=== PATIENT | female | born 1990 | race Caucasian/White ===

== ENCOUNTER 2021-09-01 15:35 | Emergency (ER) | payer SELFPAY ==
[~2021-09-01] VITALS: Ht 165.1 cm; Wt 62.3 kg
[2021-09-01 15:54] VITALS: BP 111/68
--- NOTE | 2021-09-01 16:00 | NUR ---
PT AMBULATED TO BED 8
--- NOTE | 2021-09-01 16:17 | NUR ---
31 Y/O FEMALE BIB SELF C/O INTERMITTENT EPIGASTRIC PAIN X 1 YEAR. LAST BM NORMAL TODAY. DENIES N/V/D/ CONSTIPATION. PT STATES THE PAIN WORSENS AFTER SHE EATS. PT DENIES CHEST PAIN, SOB, FEVER OR CHILLS. BED IN LOWEST POSITION, BED RAIL X1. PMH: DENIES NKA MEDS:DENIES
[2021-09-01 16:37] LABS: BASOPHILS # (AUTO) 0.1 K/uL (0.00-0.22); BASOPHILS % (AUTO) 0.7 % (0.0-2.0); EOSINOPHILS # (AUTO) 0.1 K/uL (0-0.4); EOSINOPHILS % (AUTO) 0.8 % (0.0-4.0); HEMATOCRIT 36.5 % (36-48); HEMOGLOBIN 11.9 g/dL (12.0-16.0); LYMPHOCYTES # (AUTO) 1.5 K/uL (2.5-16.5); LYMPHOCYTES % (AUTO) 16.2 % (20.5-51.1); MEAN CORPUSCULAR HEMOGLOBIN 29 pg (27-31); MEAN CORPUSCULAR HGB CONC 33 g/dL (33-37); MEAN CORPUSCULAR VOLUME 88.3 fL (80-94); MONOCYTES # (AUTO) 0.6 K/uL (0.8-1.0); MONOCYTES % (AUTO) 6.1 % (1.7-9.3); NEUTROPHILS % (AUTO) 76.2 % (42.2-75.2); PLATELET COUNT (AUTO) 264 K/uL (140-450); RED BLOOD CELL COUNT(AUTO) 4.13 MIL/uL (4.20-5.40); RED CELL DISTRIBUTION WIDTH 14.9 % (11.6-13.7); WHITE BLOOD COUNT (AUTO) 9.1 K/uL (4.8-10.8)
[2021-09-01] MEDS ORDERED: DICYCLOMINE HCL LIQUID 20 MG, ALUMINUM HYD/MAG/SIMETHICONE 30 ML, LIDOCAINE VISCOUS 2% ... PO ONE ×3 (16:45)
[2021-09-01] MEDS ORDERED: DICYCLOMINE HCL LIQUID 10 MG/5 ML UDC ONE (16:47)
[2021-09-01] MEDS ORDERED: ALUMINUM HYD/MAG/SIMETHICONE 30 ML UDC ONE (16:47)
[2021-09-01 17:15] LABS: ALBUMIN 3.8 g/dL (3.4-5.0); ANION GAP 13.2 (8-16); CREATININE 0.9 mg/dL (0.6-1.3); POTASSIUM 3.2 mmol/L (3.5-5.1); TOTAL BILIRUBIN 0.3 mg/dL (0.0-1.0)
[2021-09-01] MEDS ORDERED: OMEP20EC11 PO (17:45)
[2021-09-01] MEDS ORDERED: BEN10 PO (17:45)
[2021-09-01 17:59] VITALS: BP 111/68
--- NOTE | 2021-09-01 18:00 | NUR ---
Patient discharged with v/s stable. Written and verbal after care instructions given and explained. Patient alert, oriented and verbalized understanding of instructions. Ambulatory with steady gait. All questions addressed prior to discharge. ID band removed. Patient advised to follow up with PMD. Rx of BENTYL,PRILOSEC given. Patient educated on indication of medication including possible reaction and side effects. Opportunity to ask questions provided and answered.
== END 2021-09-01 17:59 | disposition home or self-care (01) ==
LOC: MED 15:35
DX: G89.29 Other chronic pain (principal); R10.13 Epigastric pain; J45.909 Unspecified asthma, uncomplicated
CPT/HCPCS: 36415; 80053; 81002; 81025; 83690; 85025; 99283

== ENCOUNTER 2022-01-21 18:25 | Emergency (ER) | payer SELFPAY ==
[~2022-01-21] VITALS: Ht 165.1 cm; Wt 61.2 kg
[~2022-01-21 18:25] MED LIST: BEN10 PO; OMEP20EC11 PO
[2022-01-21 19:15] VITALS: BP 131/74
--- NOTE | 2022-01-21 19:18 | NUR ---
to lobby a/w bed ambulatory
[2022-01-21] MEDS ORDERED: PRED20TA5 PO (21:53)
[2022-01-21] MEDS ORDERED: IBUP-2213 PO (21:53)
[2022-01-21] MEDS ORDERED: ALBU0.0912 INH (21:53)
[2022-01-21 22:01] VITALS: BP 131/74
--- NOTE | 2022-01-21 22:01 | NUR ---
Seen by ER MD no nursing interventions provided for patient.
--- NOTE | 2022-01-21 22:01 | NUR ---
Patient discharged. Written and verbal after care instructions given and explained about cough and sore throat. Patient alert, oriented and verbalized understanding of instructions. Ambulatory with steady gait. All questions addressed prior to discharge. ID band removed. Patient advised to follow up with PMD. Rx of Albuterol Sulfate, Ibuprofen, and Prednisone given. Patient educated on indication of medication including possible reaction and side effects. Opportunity to ask questions provided and answered.
== END 2022-01-21 22:01 | disposition home or self-care (01) ==
LOC: MED 18:25
DX: J02.9 Acute pharyngitis, unspecified (principal); R05.9 Cough, unspecified; R07.0 Pain in throat; J45.909 Unspecified asthma, uncomplicated; Z79.899 Other long term (current) drug therapy
CPT/HCPCS: 71045; 99283